=== PATIENT | female | born 1945 | race African-American/Black ===

== ENCOUNTER 2017-08-05 19:48 | Emergency (ER) | payer MEDICARE | END 2017-08-05 20:19 | disposition left against medical advice (07) | LOC: ERS 19:48 | DX: Z53.21 Procedure and treatment not carried out due to patient leaving prior to being seen by health care provider (principal) ==

== ENCOUNTER 2017-08-05 20:46 | Emergency (ER) | payer MEDICARE ==
--- NOTE | 2017-08-05 22:30 | RAD ---
RADIOGRAPH LEFT HIP TWO VIEWS: History: 72-year-old female status post acute left hip trauma resulting in pain, from fall. FINDINGS: Femoral head contour is maintained. Hip joint space is maintained. No significant subcapital osteophy eliu. No dislocation. No fracture identified. IMPRESSION: Negative. POS: [facility]
[2017-08-05] MEDS ORDERED: Morphine 10 MG/ML VIAL ONE (22:31)
--- NOTE | 2017-08-05 22:36 | RAD ---
RADIOGRAPH PELVIS ONE VIEW: History: 72-year-old female with pelvic acute trauma due to fall. FINDINGS: No fracture is identified, but the osteopenia and overlying bowel gas and colonic stool, plus the ove rexposed technique, could obscure a fracture. There is no dislocation of the hips. IMPRESSION: No fracture identified. POS: [facility]
--- NOTE | 2017-08-05 22:37 | RAD ---
RADIOGRAPH LEFT KNEE FOUR VIEWS: History: 72-year-old female with acute left knee traumatic pain from fall. FINDINGS: No fracture is identified. No dislocation. Little or no joint effusions. Severe DJD of medial compart ment. Mild DJD at lateral compartment. Moderate DJD at patellofemoral compartment. IMPRESSION: 1. Severe osteoarthrosis of the medial compartment. 2. No evidence of fracture. POS: [facility]
== END 2017-08-05 23:19 | disposition home or self-care (01) ==
LOC: SCSER 20:46
DX: S80.02XA Contusion of left knee, initial encounter (principal); I11.0 Hypertensive heart disease with heart failure; I50.9 Heart failure, unspecified; F32.9 Major depressive disorder, single episode, unspecified; Z79.899 Other long term (current) drug therapy; Z86.73 Personal history of transient ischemic attack (TIA), and cerebral infarction without residual deficits; W18.09XA Striking against other object with subsequent fall, initial encounter
CPT/HCPCS: 72170; 96372; J2270

== ENCOUNTER 2023-10-26 23:25 | Emergency (ER) | payer MEDICARE, BC ==
[2023-10-27] MEDS ORDERED: Ibuprofen 200 MG TAB ONE (02:20)
[2023-10-27] MEDS ORDERED: Methocarbamol 500 MG TAB ONE (02:22)
[2023-10-27] MEDS ORDERED: Methocarbamol 500 MG TAB PO SCH (02:30)
== END 2023-10-27 02:44 | disposition home or self-care (01) ==
LOC: ERS 23:25
DX: M54.2 Cervicalgia (principal); I10 Essential (primary) hypertension
CPT/HCPCS: 99283